=== PATIENT | male | born 1975 | race Caucasian/White ===

== ENCOUNTER 2019-08-10 11:29 | Emergency (ER) | payer OTHER ==
[~2019-08-10] VITALS: Ht 180.3 cm; Wt 102.1 kg
[~2019-08-10 11:29] MED LIST: IBUPROFEN600 MG ORAL; LIDODERM700 M1 TOPIC; NKM; ROBAXIN-500MG ORAL
[2019-08-10 11:40] VITALS: BP 128/84
--- NOTE | 2019-08-10 11:40 | NUR ---
ED Nurse Note: Patient walked into ED c/o right arm radiating to his right middle finger pain, states that a machine pulled his finger and it "has been ice cold" patient reports the injury hhappening on 07/20/19, was seen here on wednesday, however wants to follow up, rates his pain a 8/10 pain. patient is alert and oriented x4, placed in a room, will continue to monitor
[2019-08-10 13:08] LABS: EOSINOPHILS % (AUTO) 1.5 % (0.0-3.0); HEMATOCRIT 48.3 % (42.0-52.0); HEMOGLOBIN 15.8 G/DL (14.2-18.0); LYMPHOCYTES % (AUTO) 20.8 % (20.0-45.0); MEAN CORPUSCULAR VOLUME 93 FL (80-99); MONOCYTES % (AUTO) 5.3 % (1.0-10.0); NEUTROPHILS % (AUTO) 71.4 % (45.0-75.0); PLATELET COUNT 236 K/UL (150-450); RED BLOOD COUNT 5.21 M/UL (4.70-6.10); RED CELL DISTRIBUTION WIDTH 11.8 % (11.6-14.8)
[2019-08-10 13:10] LABS: ANION GAP 9 mmol/L (5-15); BLOOD UREA NITROGEN 13 mg/dL (7-18); CARBON DIOXIDE 27 MMOL/L (21-32); CHLORIDE 105 MMOL/L (98-107); POTASSIUM 4.1 MMOL/L (3.5-5.1); SODIUM 141 MMOL/L (136-145)
[2019-08-10 13:14] LABS: INR 0.9 (0.9-1.1)
[2019-08-10 13:17] LABS: ALANINE AMINOTRANSFERASE 36 U/L (12-78); ALBUMIN 3.9 G/DL (3.4-5.0); ALBUMIN/GLOBULIN RATIO 1.1 (1.0-2.7); ALKALINE PHOSPHATASE 68 U/L (46-116); ASPARTATE AMINO TRANSFERASE 22 U/L (15-37); BILIRUBIN,TOTAL 0.4 MG/DL (0.2-1.0)
--- NOTE | 2019-08-10 15:02 | Diagnostic Imaging Report ---
Clinical Indication:Right wrist pain Technique: 3 views of the right wrist Comparison: None Findings: No acute fractures. No dislocations. The joint spaces are preserved. There is suggestion of an old healed fracture deformity of the base of the third metacarpal. No radiopaque foreign body Impression: No acute bony trauma
--- NOTE | 2019-08-10 15:11 | Diagnostic Imaging Report ---
ndication: Right shoulder pain, pain radiating down the finger since trauma on 07/20/2019 Technique: IV administration nonionic contrast. Arterial phase spiral acquisitions obtained through the chest with [id number] centered on the right shoulder. Multiplanar and 3-D reconstructions were generated. Total dose length product 773 mGycm. CTDIvol(s) 15 mGy. Dose reduction achieved using automated exposure control Comparison: none Findings: The right brachiocephalic, subclavian, axillary, and brachial arteries are patent, without evidence of pseudoaneurysm, dissection, intimal flap, or occlusion. Note that distally the brachial artery is not optimally opacified due to suboptimal bolus timing, but is nonetheless appears grossly patent. The proximal branches appear unremarkable, without evidence of occlusion, contrast extravasation, or pseudoaneurysm. Visualized portion of the common carotid artery appears unremarkable. No evidence of axillary hematoma. The muscles and other soft tissues appear unremarkable. Lung window images demonstrate small subpleural blebs. Right hilar lymph nodes are prominent but not frankly enlarged. The bones appear intact. Impression: No evidence of acute vascular injury. No other significant post traumatic abnormality. Note that given stated clinical history, MRI of the brachial plexus and/or shoulder may be useful as clinically indicated Nonspecific prominent right perihilar lymph nodes Incidental finding of multiple small subpleural blebs The CT scanner at [facility] is accredited by the [employer] and the scans are performed using protocols designed to limit radiation exposure to as low as reasonably achievable to attain images of sufficient resolution adequate for diagnostic evaluation.
[2019-08-10] MEDS ORDERED: ALBUTEROL SULF8.5 GM INH (15:27)
[2019-08-10] MEDS ORDERED: IBUPROFEN600 MG ORAL (15:27)
--- NOTE | 2019-08-10 15:40 | NUR ---
ER DISCHARGE NOTE:pt. was instructed on wearing arm sling Patient is cleared to be discharged per ERMD, pt is aox4, on room air, with stable vital signs. pt was given dc and prescription instructions, pt was able to verbalize understanding, pt is able to ambulate with steady gait. pt took all belongings.
[2019-08-10 16:10] VITALS: BP 128/84
--- NOTE | 2019-08-10 18:38 | Emergency Room Report ---
History of Present Illness General Chief Complaint: Upper Extremity Injury Source: Patient Present Illness HPI Patient is a 43-year-old male presents after increased right upper extremity pain. Patient was sent in from Worker's Comp. clinic. Patient states that he had injury several weeks ago in which his right upper extremity was forcibly pulled by some machinery. He reports having persistent pain to the right shoulder. He reports having some numbness to his fingers. He denies any current neck pain. He reports having worsening pain with movement primarily at the right shoulder. Patient is currently a smoker. He denies any chest discomfort. Allergies: Coded Allergies: No Known Allergies (Unverified , 08/08/19) Patient History Past Medical History: see triage record Reviewed Nursing Documentation: PMH: Agreed; PSxH: Agreed Nursing Documentation-PMH Past Medical History: No History, Except For Review of Systems All Other Systems: negative except mentioned in HPI Physical Exam Vital Signs Date Time Temp Pulse Resp B/P (MAP) Pulse Ox O2 Delivery O2 Flow Rate FiO2 08/10/19 11:35 98.1 68 15 128/84 (99) 96 Room Air Sp02 EP Interpretation: reviewed, normal General Appearance: normal inspection, well appearing, no apparent distress, alert, GCS 15, obese Head: atraumatic ENT: normal ENT inspection, hearing grossly normal, normal voice Neck: normal inspection, full range of motion, supple, no bony tend Respiratory: normal inspection, normal breath sounds, no respiratory distress, no retraction, no wheezing, speaking full sentences Cardiovascular #1: regular rate, rhythm, no edema Gastrointestinal: normal inspection, normal bowel sounds, non tender, soft, no guarding, no hernia Genitourinary: no CVA tenderness Musculoskeletal: normal inspection, back normal, decreased range of motion - Slight swelling to the right hand with normal cap refill brisk pulses, other - Slow movements to all fingers however he is able to move them all. Neurologic: normal inspection, alert, oriented x3, responsive, [employer] III-XII nml as tested, speech normal Psychiatric: normal inspection, judgement/insight normal, mood/affect normal Skin: no rash Medical Decision Making Diagnostic Impression: Primary Impression: Right shoulder injury Additional Impression: Hilar adenopathy ER Course Patient presented for shoulder injury. Differential diagnosis include was not limited to nerve injury, rotator cuff injury, fracture, dislocation, vascular injury among others. Because of complexity of patient's case laboratory tests and imaging studies were ordered. Patient was noted to have prior visit for similar symptoms. Prior plain film x-ray showed no evidence of acute fracture. CT angiogram of the right upper extremity was ordered due to the patient's numbness and sensation of cold feeling to the fingers. CT angiogram read by radiology showed no evidence of acute vascular compromise. See radiology report for full details. Incidental hilar adenopathy was noted. Patient was informed of CT findings. He was given prescription for pain medications and advised to follow-up with workers comp physician for further evaluation. Patient previously been using a sling. He is advised to continue use of sling and follow-up with MRI if symptoms persisted and to have further work-up on hilar adenopathy. Patient was advised to return if any worsening of condition or other concerns. This medical record is generated with [employer] work station support specialist software. There may be some work station support specialist discrepancies related to use of this software Labs Test 08/10/19 12:10 White Blood Count 13.0 K/UL (4.8-10.8) Red Blood Count 5.21 M/UL (4.70-6.10) Hemoglobin 15.8 G/DL (14.2-18.0) Hematocrit 48.3 % (42.0-52.0) Mean Corpuscular Volume 93 FL (80-99) Mean Corpuscular Hemoglobin 30.4 PG (27.0-31.0) Mean Corpuscular Hemoglobin Concent 32.8 G/DL (32.0-36.0) Red Cell Distribution Width 11.8 % (11.6-14.8) Platelet Count 236 K/UL (150-450) Mean Platelet Volume 7.4 FL (6.5-10.1) Neutrophils (%) (Auto) 71.4 % (45.0-75.0) Lymphocytes (%) (Auto) 20.8 % (20.0-45.0) Monocytes (%) (Auto) 5.3 % (1.0-10.0) Eosinophils (%) (Auto) 1.5 % (0.0-3.0) Basophils (%) (Auto) 1.0 % (0.0-2.0) Prothrombin Time 10.0 SEC (9.30-11.50) Prothromb Time International Ratio 0.9 (0.9-1.1) Activated Partial Thromboplast Time 27 SEC (23-33) Sodium Level 141 MMOL/L (136-145) Potassium Level 4.1 MMOL/L (3.5-5.1) Chloride Level 105 MMOL/L (98-107) Carbon Dioxide Level 27 MMOL/L (21-32) Anion Gap 9 mmol/L (5-15) Blood Urea Nitrogen 13 mg/dL (7-18) Creatinine 1.0 MG/DL (0.55-1.30) Estimat Glomerular Filtration Rate > 60 mL/min (>60) Glucose Level 101 MG/DL (74-106) Calcium Level 9.0 MG/DL (8.5-10.1) Total Bilirubin 0.4 MG/DL (0.2-1.0) Aspartate Amino Transf (AST/SGOT) 22 U/L (15-37) Alanine Aminotransferase (ALT/SGPT) 36 U/L (12-78) Alkaline Phosphatase 68 U/L (46-116) Total Protein 7.3 G/DL (6.4-8.2) Albumin 3.9 G/DL (3.4-5.0) Globulin 3.4 g/dL Albumin/Globulin Ratio 1.1 (1.0-2.7) Last Vital Signs Date Time Temp Pulse Resp B/P (MAP) Pulse Ox O2 Delivery O2 Flow Rate FiO2 08/10/19 16:10 98.1 15 128/84 96 Room Air 08/10/19 11:40 68 Status: improved Disposition: HOME, SELF-CARE Condition: Stable Scripts Ibuprofen* (MOTRIN*) 600 Mg Tablet 600 MG ORAL Q8H PRN for For Pain, #20 TAB 0 Refills Prov: Sarkis Juarez MD 08/10/19 Albuterol Sulfate* (ALBUTEROL SULFATE MDI*) 8.5 Gm Hfa.aer.ad 2 PUFF INH Q6H, #1 INH 0 Refills Prov: Sarkis Juarez MD 08/10/19 Referrals: NOT CHOSEN IPA/,REFERRING (PCP) Patient Instructions: Shoulder Pain, [id number], Rotator Cuff Injury Additional Instructions: Follow up with worker's comp physician. Follow up with your regular doctor for further evaluation of emphysema and hilar lymph node. Return if worse. Sarkis Juarez MD Aug 10, 2019 18:38
== END 2019-08-10 15:50 | disposition home or self-care (01) ==
LOC: EMR 12:13
DX: S49.91XA Unspecified injury of right shoulder and upper arm, initial encounter (principal); R59.0 Localized enlarged lymph nodes; F17.200 Nicotine dependence, unspecified, uncomplicated; X50.9XXA Other and unspecified overexertion or strenuous movements or postures, initial encounter; Y92.9 Unspecified place or not applicable; Y99.0 Civilian activity done for income or pay
CPT/HCPCS: 36415; 71275; 73110; 80053; 85025; 85610; 85730; 99283; Q9967